=== PATIENT | female | born 1985 | race Caucasian/White ===

== ENCOUNTER 2017-07-11 15:32 | Emergency (ER) | payer OTHER ==
[~2017-07-11] VITALS: Ht 157.5 cm; Wt 75.0 kg
[~2017-07-11 15:32] MED LIST: ACET-2119 PO; ALBU1.257 NEB; BECL8.7A7 INH; CYCL-1 PO
[2017-07-11] MEDS ORDERED: ketorolac trometh inj. 60 MG/2 ML VIAL IM ONE (16:35)
[2017-07-11] MEDS ORDERED: diazepam 5mg tablet PO ONE (16:35)
[2017-07-11] MEDS ORDERED: METH-360 PO (16:36)
[2017-07-11] MEDS ORDERED: DICL100G15 TOP (16:37)
[2017-07-11] MEDS ORDERED: ketorolac tromethamine 15mg/ml inj. IM ONE (16:45)
[2017-07-11 18:48] VITALS: BP 116/87
== END 2017-07-11 18:50 | disposition home or self-care (01) ==
LOC: ER 15:33
DX: M54.2 Cervicalgia (principal); M54.9 Dorsalgia, unspecified; Z88.5 Allergy status to narcotic agent; Z88.8 Allergy status to other drugs, medicaments and biological substances; Z91.040 Latex allergy status; Z79.899 Other long term (current) drug therapy
CPT/HCPCS: 96372; 99283; J1885

== ENCOUNTER 2017-09-04 16:13 | Emergency (ER) | payer MEDICAID, OTHER ==
[~2017-09-04] VITALS: Ht 157.5 cm; Wt 68.5 kg
[~2017-09-04 16:13] MED LIST changes: -ACET-2119 PO; +DICL100G15 TOP; +METH-360 PO
[2017-09-04] MEDS ORDERED: ketorolac trometh. 30mg/ml inj. IM ONE (18:40)
[2017-09-04 19:33] VITALS: BP 116/84
== END 2017-09-04 19:35 | disposition home or self-care (01) ==
LOC: ER 16:13
DX: M25.511 Pain in right shoulder (principal); Z91.040 Latex allergy status; Z88.5 Allergy status to narcotic agent; Z88.6 Allergy status to analgesic agent; Z79.899 Other long term (current) drug therapy
CPT/HCPCS: 73030; 96372; 99284; A4565; J1885